=== PATIENT | female | born 1980 | race Caucasian/White ===

== ENCOUNTER 2019-04-22 15:22 | Emergency (ER) | payer OTHER, SELFPAY ==
[2019-04-22] MEDS ORDERED: LORAZEPAM 1 MG TABLET ONE (16:35)
[2019-04-22 16:54] LABS: Absolute Lymphocytes (CBC) 1.8 K/uL (0.7-4.9); Absolute Monocytes 0.4 K/uL (0.1-1.3); Absolute Neutrophil 3.2 K/uL (1.8-8.0); Basophils % 0.4 % (0-1.3); Eosinophils % 1.4 % (0-4.4); Hematocrit 37.5 % (36.0-45.0); Lymphocytes % 33.6 % (15.3-44.8); MPV 7.7 fL (7.6-11.3); Monocytes % 6.4 % (3.3-12.3); RBC Red Blood Cell Count 4.73 M/uL (3.86-4.86)
[2019-04-22 17:06] LABS: ALT/SGPT 19 U/L (12-78); AST/SGOT 11 U/L (15-37); Albumin 3.4 g/dL (3.4-5.0); Alkaline Phosphatase 90 U/L (45-117); BUN Blood Urea Nitrogen 14 mg/dL (7-18); Bicarbonate 24 mmol/L (21-32); Bilirubin Total 0.2 mg/dL (0.2-1.0); Glucose Level 103 mg/dL (74-106); Potassium 3.9 mmol/L (3.5-5.1); Protein, Total 7.3 g/dL (6.4-8.2); Sodium Level 139 mmol/L (136-145); Troponin I < 0.02 ng/mL (0.0-0.045)
--- NOTE | 2019-04-22 17:15 | ER ---
Nurse's Notes [facility] Name: Deja Delgado Age: 38 yrs Sex: Female : 1980 Arrival Date: 04/22/2019 Time: 15:23 Bed 4 Private MD: Diagnosis: Chest pain on breathing Presentation: 04/22 15:30 Presenting complaint: Patient states: Sudden intense chest pressure and bilateral jaw hb pain while making breakfast this morning. Pain subsided when she went to lie down but came back 1 hr ago. Also reports nausea. Transition of care: patient was not received from another setting of care. Onset of symptoms was April 22, 2019. Risk Assessment: Do you want to hurt yourself or someone else? Patient reports no desire to harm self or others. Initial Sepsis Screen: Does the patient meet any 2 criteria? No. Patient's initial sepsis screen is negative. Does the patient have a suspected source of infection? No. Patient's initial sepsis screen is negative. Care prior to arrival: None. 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 - Social history:: Smoking status: Patient/guardian denies using tobacco, Patient/guardian denies using alcohol, street drugs, The patient lives with family. - Ebola Screening: : No symptoms or risks identified at this time. - Family history:: not pertinent. - Hospitalizations: : No recent hospitalization is reported. Screenin:55 Abuse screen: Denies threats or abuse. Nutritional screening: No deficits noted. tw2 Tuberculosis screening: No symptoms or risk factors identified. Fall Risk None identified. Assessment: 16:14 General: Appears in no apparent distress. comfortable, obese, well groomed, Behavior is ph calm, cooperative, appropriate for age, Denies fever, feeling ill. Pain: Complains of pain in mid-sternal area Pain radiates to right jaw and left jaw Pain began suddenly, this morning. Neuro: Level of Consciousness is awake, alert, obeys commands, Oriented to person, place, time, situation. Cardiovascular: Reports chest pain, nausea, palpitations, Denies diaphoresis, syncope, vomiting, Capillary refill < 3 seconds in bilateral fingers Patient's skin is warm and dry. Rhythm is sinus rhythm Chest pain is located in substernal area. Respiratory: Airway is patent Respiratory effort is even, unlabored. GI: Patient currently denies abdominal pain, nausea, vomiting. Derm: Skin is intact, is healthy with good turgor, Skin is pink, warm \T\ dry. Musculoskeletal: Circulation, motion, and sensation intact. Range of motion: intact in all extremities. 17:22 Reassessment: Patient appears in no apparent distress at this time. Patient and/or tw2 family updated on plan of care and expected duration. Pain level reassessed. Patient is alert, oriented x 3, equal unlabored respirations, skin warm/dry/pink. Patient states feeling better. Patient states symptoms have improved. Vital Signs: 15:33 BP 133 / 85; Pulse 91; Resp 18; Temp 98.3; Pulse Ox 100% on R/A; Weight 95.25 kg; hb Height 5 ft. 1 in. (154.94 cm); Pain 4/10; 16:47 BP 116 / 84; Pulse 90; Resp 18; Pulse Ox 100% on R/A; ph 17:23 BP 107 / 89; Pulse 89; Resp 17; Pulse Ox 99% on R/A; tw2 15:33 Body Mass Index 39.68 (95.25 kg, 154.94 cm) hb ED Course: 15:23 Patient arrived in ED. rg4 15:33 Triage completed. hb 15:34 Arm band placed on right wrist. hb 15:41 Sanna Wong, RN is Primary Nurse. ph 15:47 Puja Camargo MD is Attending Physician. ma2 15:55 Bed in low position. Call light in reach. clinical research monitor on. Pulse ox on. NIBP on. tw2 15:55 Patient maintains SpO2 saturation greater than 95% on room air. tw2 16:09 EKG done, by mechanical facilities technician. reviewed by Puja Camargo MD. at1 16:40 Inserted saline lock: 22 gauge in right antecubital area, using aseptic technique. ph Blood collected. 16:46 No provider procedures requiring assistance completed. ph 17:22 IV discontinued, intact, bleeding controlled, No redness/swelling at site. Pressure tw2 dressing applied. Administered Medications: 16:42 Drug: Ativan 2 mg Route: PO; ph 17:21 Follow up: Response: No adverse reaction tw2 Outcome: 17:15 Discharge ordered by . ma2 17:21 Discharged to home ambulatory. tw2 17:21 Condition: stable 17:21 Discharge instructions given to patient, Instructed on discharge instructions, follow up and referral plans. no drinking with medication, no driving heavy equipment, medication usage, Demonstrated understanding of instructions, follow-up care, medications, Prescriptions given X 2. 17:23 Patient left the ED. tw2 Signatures: Estee Gee, gas engine repairer EKG Tat1 Sanna Wong RN RN Shirlene Arguelles RN RUBENS Kiara Keyes RN RN tw2 Maegan Hu4 Puja Camargo MD MD ca2
--- NOTE | 2019-04-22 17:15 | EDPHYS ---
Physician Documentation [facility] Name: Deja Delgado Age: 38 yrs Sex: Female : 1980 Arrival Date: 04/22/2019 Time: 15:23 Bed 4 Private MD: ED Physician Puja Camargo HPI: 04/22 16:14 This 38 yrs old Female presents to ER via Ambulatory with complaints of Chest ma2 Pain, Weakness. 16:14 The patient or guardian reports chest pain that is located primarily in the substernal ma2 area. The pain does not radiate. The chest pain is described as aching. Duration: The patient or guardian reports a single episode. Severity of pain: At its worst the pain was very mild in the emergency department the pain has resolved. The patient has experienced similar episodes in the past. 16:14 Modifying factors: The symptoms are alleviated by antacids, the symptoms are aggravated ma2 by cough, deep breath, movement, twisting torso. 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 - Social history:: Smoking status: Patient/guardian denies using tobacco, Patient/guardian denies using alcohol, street drugs, The patient lives with family. - Ebola Screening: : No symptoms or risks identified at this time. - Family history:: not pertinent. - Hospitalizations: : No recent hospitalization is reported. ROS: 16:14 Constitutional: Negative for fever, chills, and weight loss, Eyes: Negative for injury, ma2 pain, redness, and discharge. 16:14 Cardiovascular: Positive for chest pain, Negative for edema, palpitations, paroxysmal nocturnal dyspnea, acute changes. 16:14 All other systems are negative. Exam: 16:14 Constitutional: This is a well developed, well nourished patient who is awake, alert, ma2 and in no acute distress. Head/Face: Normocephalic, atraumatic. Eyes: Pupils equal round and reactive to light, extra-ocular motions intact. Lids and lashes normal. Conjunctiva and sclera are non-icteric and not injected. Cornea within normal limits. Periorbital areas with no swelling, redness, or edema. ENT: Nares patent. No nasal discharge, no septal abnormalities noted. Tympanic membranes are normal and external auditory canals are clear. Oropharynx with no redness, swelling, or masses, exudates, or evidence of obstruction, uvula midline. Mucous membranes moist. Cardiovascular: Regular rate and rhythm with a normal S1 and S2. No gallops, murmurs, or rubs. Normal PMI, no JVD. No pulse deficits. Respiratory: Lungs have equal breath sounds bilaterally, clear to auscultation and percussion. No rales, rhonchi or wheezes noted. No increased work of breathing, no retractions or nasal flaring. Abdomen/GI: Soft, non-tender, with normal bowel sounds. No distension or tympany. No guarding or rebound. No evidence of tenderness throughout. MS/ Extremity: Pulses equal, no cyanosis. Neurovascular intact. Full, normal range of motion. Neuro: Awake and alert, GCS 15, oriented to person, place, time, and situation. Cranial nerves II-XII grossly intact. Motor strength 5/5 in all extremities. Sensory grossly intact. Cerebellar exam normal. Normal gait. 16:14 Chest/axilla: Inspection: normal, Palpation: tenderness, that is mild, of the mid-sternal area, Axilla: are normal, Breasts: are normal, Lymph nodes: Vital Signs: 15:33 BP 133 / 85; Pulse 91; Resp 18; Temp 98.3; Pulse Ox 100% on R/A; Weight 95.25 kg; hb Height 5 ft. 1 in. (154.94 cm); Pain 4/10; 16:47 BP 116 / 84; Pulse 90; Resp 18; Pulse Ox 100% on R/A; ph 17:23 BP 107 / 89; Pulse 89; Resp 17; Pulse Ox 99% on R/A; tw2 15:33 Body Mass Index 39.68 (95.25 kg, 154.94 cm) hb MDM: 15:48 Patient medically screened. ma2 16:14 Differential diagnosis: chest wall pain, costochondritis, esophagitis, gastritis, ma2 gastroesophageal reflux disease (GERD). 17:14 Data reviewed: vital signs, nurses notes. Test interpretation: by ED physician or ma2 midlevel provider: ECG, EKG showing nsr rate of 70 qt wnl, no ishcemic changes . Counseling: I had a detailed discussion with the patient and/or guardian regarding: the historical points, exam findings, and any diagnostic results supporting the discharge/admit diagnosis, the presence of at least one elevated blood pressure reading (>120/80) during this emergency department visit, the need for outpatient follow up. Response to treatment: the patient's symptoms have markedly improved after treatment. 04/22 16:12 Order name: CBC with Diff; Complete Time: 17:13 ma2 04/22 16:12 Order name: Troponin I; Complete Time: 17:13 ma2 04/22 15:36 Order name: EKG; Complete Time: 15:38 hb 04/22 15:36 Order name: EKG - Nurse/Tech; Complete Time: 16:13 04/22 16:12 Order name: CMP; Complete Time: 17:13 ma2 Administered Medications: 16:42 Drug: Ativan 2 mg Route: PO; ph 17:21 Follow up: Response: No adverse reaction tw2 Disposition: 04/22/19 17:15 Discharged to Home. Impression: Chest pain on breathing. - Condition is Stable. - Discharge Instructions: Nonspecific Chest Pain. - Prescriptions for Ativan 1 mg Oral Tablet - take 1 tablet by ORAL route every 8 hours As needed; 10 tablet. Tylenol- Codeine #3 300-30 mg Oral Tablet - take 2 tablet by ORAL route every 6 hours As needed; 30 tablet. - Medication Reconciliation Form, Thank You Letter, Antibiotic Education, Prescription Opioid Use form. - Follow up: Private Physician; When: Tomorrow; Reason: If symptoms return, Continuance of care. Signatures: Dispatcher [employer] Sanna Samuels RN RN Shirlene Arguelles, RN RN Kiara Keyes RN RN tw2 Puja Camargo MD MD ma2 Corrections: (The following items were deleted from the chart) 17:23 17:15 04/22/2019 17:15 Discharged to Home. Impression: Chest pain on breathing. tw2 Condition is Stable. Discharge Instructions: Nonspecific Chest Pain. Prescriptions for Ativan 1 mg Oral Tablet - take 1 tablet by ORAL route every 8 hours As needed; 10 tablet. and Forms are Medication Reconciliation Form, Thank You Letter, Antibiotic Education, Prescription Opioid Use. Follow up: Private Physician; When: Tomorrow; Reason: If symptoms return, Continuance of care. ma2
--- NOTE | 2019-04-23 07:32 | EKG ---
Test Date: 2019-04-22 Test Time: 15:43:47 Slab Tripper: FAUSTINO MEASUREMENT RESULTS: Intervals: Rate: 92 OH: 146 QRSD: 80 QT: 354 QTc: 437 Stanton: P: 42 OH: 146 QRS: 27 T: 23 INTERPRETIVE STATEMENTS: Normal sinus rhythm Normal ECG No previous ECG available for comparison Electronically Signed On 04-23-19 07:31:16 CDT by Cornel Clancy
== END 2019-04-22 17:23 | disposition home or self-care (01) ==
LOC: ER 15:22
DX: R07.1 Chest pain on breathing (principal); K21.9 Gastro-esophageal reflux disease without esophagitis
CPT/HCPCS: 36415; 80053; 84484; 85025; 93005; 99285